=== PATIENT | male | born 1985 | race Caucasian/White ===

== ENCOUNTER 2021-08-17 09:45 | Emergency (ER) | payer OTHER ==
[~2021-08-17] VITALS: Ht 165.1 cm; Wt 72.6 kg
[2021-08-20] MEDS ORDERED: TRAMADOL PO (14:49)
== END 2021-08-17 12:15 | disposition home or self-care (01) ==
LOC: ER 09:45
DX: S62.647A Nondisplaced fracture of proximal phalanx of left little finger, initial encounter for closed fracture (principal); W32.1XXA Accidental handgun malfunction, initial encounter; Y92.488 Other paved roadways as the place of occurrence of the external cause

== ENCOUNTER 2021-08-18 12:16 | Outpatient (CLI) | payer OTHER ==
[2021-08-20] MEDS ORDERED: TRAMADOL PO (14:49)
== END 2021-08-18 12:20 | disposition home or self-care (01) ==
LOC: LAB 12:16
PROVIDERS: ATTEND Orthopaedic Surgery
DX: D64.89 Other specified anemias (principal); E88.89 Other specified metabolic disorders; D68.8 Other specified coagulation defects; N39.0 Urinary tract infection, site not specified; Z22.322 Carrier or suspected carrier of Methicillin resistant Staphylococcus aureus; E13.69 Other specified diabetes mellitus with other specified complication; Z76.89 Persons encountering health services in other specified circumstances; I49.8 Other specified cardiac arrhythmias; I10 Essential (primary) hypertension

== ENCOUNTER 2021-08-26 07:52 | Day surgery (SDC) | payer OTHER ==
[~2021-08-26 07:52] MED LIST: TRAMADOL PO
== END 2021-08-26 17:10 | disposition home or self-care (01) ==
LOC: CIR.AMB 07:52
PROVIDERS: ATTEND Orthopaedic Surgery
DX: S62.617A Displaced fracture of proximal phalanx of left little finger, initial encounter for closed fracture (principal)